=== PATIENT | female | born 1960 | race Caucasian/White ===

== ENCOUNTER 2016-05-23 15:10 | Emergency (ER) | payer BC ==
[2016-05-23 16:34] LABS: Hematocrit 40.3 % (37.0-47.0); Hemoglobin 13.8 gm/dL (12.5-16.0); Mean Cell Volume 90.6 fl (78-100); Mean Corpuscular Hgb Conc 34.2 g/dl (32-36); Mean Platelet Volume 10.4 fl (6.0-9.5); Neutrophil # 4.1 K/mm3 (1.3-6.0); Neutrophil % 69.8 % (42-75.0); Platelet Count 291 K/mm3 (150-450); Red Blood Count 4.45 M/mm3 (4.2-5.4); Red Cell Distribution Width 13.9 % (11.5-14.0); White Blood Count 5.9 K/mm3 (4.0-10.5)
--- OUTSIDE RECORDS SUMMARY | 2016-05-23 16:41 | XMS REPORT | Continuity of Care Document ---
:1960 Author Organization [facility] ([facility]) Address [address] [place] [address] Phone [phone] Care Team Providers Name Role Phone Ines Seth Primary Care Provider [phone] Source Comments This disclosure is being made pursuant to the Care Everywhere program, applicable federal and state laws, and may not contain all informaitonavailable regarding this patient.[facility] ([facility]) Active Allergies and Adverse Reactions Allergen Noted Date Severity Reactions Comments Codeine 11/27/2013 OTHER "goes limp" Sulfa (Sulfonamide Antibiotics) 11/27/2013 Pruritus,Angioedema Current Medications Prescription Sig. Disp. Refills Start Date End Date Status venlafaxine 75 mg Take 75 mg by mouth 2 Active tablet times daily. OTHER amphetamine salts Active clonazePAM 2 mg tablet Take 2 mg by mouth 2 Active times daily. levothyroxine 125 mcg Take 125 mcg by mouth Active tablet every morning before breakfast. ESTROGEN,ANITRA/ME-TESTO Take by mouth. Active STERONE (ESTROGENS-METHYLTESTOS TERONE PO) albuterol 90 Use 2 Puffs by Active mcg/Actuation inhaler inhalation every 6 hours as needed. Active Problems Not on file Social History Tobacco Use Types Packs/Day Years Used Date Never Assessed Last Filed Vital Signs Vital Sign Reading Time Taken Blood Pressure 140/81 11/27/2013 7:48 AM CDT Pulse 71 11/27/2013 7:48 AM CDT Temperature 36.3 C (97.3 F) 11/27/2013 7:48 AM CDT Respiratory Rate - - Height - - Weight - - Body Mass Index - - Oxygen Saturation - - Plan of Care Health Maintenance Due Date Last Done Comments HCV Screening 1960 Hepatitis B Vaccine (1 of 3 - Primary Series) 1960 Tdap Vaccine 11/04/1971 Lipid Disorder Screening 1978 MMR Vaccine 1978 Td Vaccine 1978 Cervical Cancer Screening 1990 Mammogram 2000 Colonoscopy 2010 Influenza Vaccine: Seasonal (#1) 11/01/2015 Results from Last 3 Months Not on file
[2016-05-23 16:52] LABS: Troponin I Less than 0.017 ng/ml (0.00-0.10)
[2016-05-23 16:59] LABS: ALT 32 U/L (19-67); AST 18 U/L (0-48); Albumin * 4.1 gm/dl (3.4-5.0); Alkaline Phosphatase * 80 U/L (50-170); Anion Gap 11.9 mmol/L (6.8-13.8); Bilirubin, Total 0.5 mg/dL (0.0-1.1); Blood Urea Nitrogen 15 mg/dL (3-23); Ca. Corrected For Albumin 8.3 mg/dL (8.4-10.2); Calcium * 8.7 mg/dL (7.9-10.9); Carbon Dioxide 29.8 mmol/L (24-32.6); Chloride 106 mmol/L (97-106); Glucose * 87 mg/dL (70-110); Potassium 3.7 mmol/L (3.4-4.6); Sodium 144 mmol/L (132-142); T4 Free * 1.41 ng/dL (0.76-1.46); TSH * 5.256 uIU/mL (0.358-3.74); Total Protein 7.6 gm/dL (6.2-8.2)
[2016-05-23 17:12] VITALS: BP 131/92
--- NOTE | 2016-05-23 17:38 | ERNOTE ---
Head Injury HPI - Narrative Date of Service: 05/23/16 - General Injury to: head Time Seen by Provider: 05/23/16 16:11 - Immun/Allergies/Home Medications Immunization: IMMUNIZATION HX Immunizations Up to Date Yes History of Influenza Vaccine No Hx Pneumococcal Vaccination No Allergies/Adverse Reactions: Allergies Allergy/AdvReac Type Severity Reaction Status Date / Time Sulfa (Sulfonamide Allergy Severe anaphaylaxi Verified 05/23/16 15:40 Antibiotics) s [Sulfa(Sulfonamide Antibiotics)] Amphetamine Aspar Allergy Mild Hives Verified 05/23/16 15:40 *RETIRED-11/04/12 [From Adderall XR] amphetamine sulfate Allergy Mild Hives Verified 05/23/16 15:40 [From Adderall XR] dextroamphetamine Allergy Mild Hives Verified 05/23/16 15:40 [From Adderall XR] acetaminophen [From NyQuil] AdvReac Mild rash Verified 05/23/16 15:40 aspirin [From Synalgos-DC] AdvReac Mild loss of Verified 05/23/16 15:40 muscle control caffeine [From Synalgos-DC] AdvReac Mild loss of Verified 05/23/16 15:40 muscle control codeine [Codeine] AdvReac Mild loss of Verified 05/23/16 15:40 muscle control dextromethorphan HBr AdvReac Mild rash Verified 05/23/16 15:40 [From NyQuil] dihydrocodeine AdvReac Mild loss of Verified 05/23/16 15:40 [From Synalgos-DC] muscle control dihydrocodeine bitartrate AdvReac Mild loss of Verified 05/23/16 15:40 [From Synalgos-DC] muscle control diphenhydramine HCl AdvReac Mild r/t asthma Verified 05/23/16 15:40 [From Benadryl] doxylamine [From NyQuil] AdvReac Mild rash Verified 05/23/16 15:40 pseudoephedrine HCl AdvReac Mild rash Verified 05/23/16 15:40 [From NyQuil] yeast, dried [Yeast] AdvReac Mild rash Verified 05/23/16 15:40 Home Medications: HOME MEDICATIONS Albuterol Sulfate [Proventil Hfa] 1 - 2 inh IH Q4H PRN 02/19/12 [Last Taken Unknown] Beta-Carotene(A) W-C & E/Min [Vision Vitamins] 1 each PO DAILY 02/19/12 [Last Taken Unknown] Clonazepam [Klonopin] 2 mg PO HS PRN 02/19/12 [Last Taken Unknown] Levothyroxine Sodium 125 mcg PO DAILY 02/19/12 [Last Taken Unknown] Trazodone HCl 50 mg PO HS 02/19/12 [Last Taken Unknown] Albuterol Sulfate [Albuterol Sulfate 2.5 MG/0.5ML] 1 vial IH TID #25 vial.neb [Last Taken Unknown] Dextroamphetamine/Amphetamine [Adderall 10 mg Tablet] 10 mg PO TID 12/16/15 [ Last Taken Unknown] Ibuprofen [Motrin] 800 mg PO TID PRN 12/16/15 [Last Taken Unknown] Pristiq ER 50 mg PO DAILY 12/16/15 [Last Taken Unknown] Cyclobenzaprine HCl [Flexeril] 10 mg PO TID PRN #30 tab 05/23/16 [Last Taken Unknown] - History of Present Illness Narrative: 55 y/o female to ED by private vehicle for a head injury that occurred last evening. She was in her kitchen, making herself something to eat, and woke up on the kitchen floor. She was alone and was unconscious for an unknown amount of time. She was having pain in her neck and shoulders when she woke up. She was also having bleeding from a scalp injury. She then had vomiting and diarrhea all throughout the night. She reports feeling fine today other than her neck being stiff. She came in for a muscle relaxant. Occurred: yesterday Location Occurred: home Head Injury Location: occipital Method of Injury: Reports: fell Reason for Fall: Reports: fainted Loss of Consciousness: Reports: brief (seconds) Associated Symptoms: Reports: neck pain. Denies: chest pain, cough, shortness of breath, fever/chills, headaches, weakness, syncope, seizure Review of Systems - Review of Systems Constitutional: Present: fatigue. Absent: fever, chills EYE: Absent: blurred vision, vision changes ENT: Absent: ear discharge, nasal drainage Respiratory: Absent: shortness of breath, cough Cardiology: Absent: chest pain, palpitations Gastrointestinal/Abdominal: Present: See HPI Genitourinary: Absent: frequency, dysuria, hematuria Musculoskeletal: Present: muscle pain, neck pain. Absent: back pain, joint pain Skin: Absent: lesions, lumps Neurological: Absent: headache, dizziness/light-headedness, weakness, numbness Endocrine: Present: no symptoms reported Hematologic/Lymphatic: Absent: easy bruising, easy bleeding Psych: Present: no symptoms reported - Patient's Past Medical History Patient History - Medical: ADHD, Anxiety, Hypothyroidism Patient History - Cardiac/Respiratory: No pertinent hx Patient History - Cancer: No Hx of Cancer Patient History - Surgical Procedures: Cholecystectomy Patient History - Other: None LMP (females 10-50): Menopausal - Social History Living Situations: home Abuse History: No History of abuse Psych History: Hx of Anxiety, Current tx/ever been on anti-depressants or anti- anxiety meds Smoking Status: Former smoker Alcohol Use: rarely Drug Use: none - Immunizations Immunizations Up to Date: Yes Hx Pneumococcal Vaccination: No History of Influenza Vaccine: No Physical Exam - Physical Exam General Appearance: Present: wd/wn, alert, no apparent distress Eye Exam: Normal inspection: bilateral, PERRL: bilateral, EOMI: bilateral Ears, Nose, Throat: Present: normal ENT inspection Neck: Present: supple, full range of motion, tender lateral. Absent: tender posterior midline Respiratory: Present: no respiratory distress, normal breath sounds, no accessory muscle use, lungs clear Cardiovascular/Chest: Present: regular rate, rhythm, no murmur, normal peripheral pulses Gastrointestinal/Abdominal: Present: normal bowel sounds, nontender, nondistended, soft Back Exam: Present: normal inspection, no vertebral tenderness Extremity Exam: Present: normal inspection, normal range of motion, no edema Neurological Exam: Present: alert, oriented, normal mood/affect, no motor/ sensory deficits Skin Exam: Present: normal color, warm/dry, other - small scalp laceration present, well approximated, no bleeding ED Progress - Results and Orders Patient's Lab Results:: I have reviewed the patient's lab results. - Vital Signs Patient's Vital Signs:: I have reviewed the patient's vital signs. Vital Signs: Vital Signs 05/23/16 05/23/16 15:32 17:10 Temperature 36.4 C L Pulse Rate 112 H 95 Respiratory 16 12 Rate Blood Pressure 142/113 131/92 O2 Sat by Pulse 96 98 Oximetry - EKG EKG: NSR EKG read: Reviewed by me - CT/Ultrasound CT/Ultrasound Narrative: No acute intracranial process identified on non-contrast head CT - Progress/Reassessment Chief Complaint: Head Injury Progress:: Unchanged Departure Clinical Impression: Episode of syncope Qualifiers: Syncope type: unspecified Qualified Code(s): R55 - Syncope and collapse Head injury Qualifiers: Encounter type: initial encounter Qualified Code(s): S09.90XA - Unspecified injury of head, initial encounter Scalp laceration Qualifiers: Encounter type: initial encounter Qualified Code(s): S01.01XA - Laceration without foreign body of scalp, initial encounter - Departure Disposition: Home Follow Up Needed Condition: Good Instructions: Head Injury, Adult, [id number] Additional Instructions: Continue your routine medications Return for worsening symptoms Follow up with your doctor in the next few days Referrals: Ines Seth MD [Primary Care Provider] - Prescriptions: Cyclobenzaprine HCl [Flexeril] 10 mg PO TID PRN #30 tab PRN Reason: MUSCLE SPASMS
[2016-05-23] MEDS ORDERED: KETOROLAC TROMETHAMINE 60 MG/2 ML VIAL IM ONE ×2 (17:40→17:42)
== END 2016-05-23 17:46 | disposition home or self-care (01) ==
LOC: ER 15:10
DX: S09.90XA Unspecified injury of head, initial encounter (principal); S01.01XA Laceration without foreign body of scalp, initial encounter; R55 Syncope and collapse; Z87.891 Personal history of nicotine dependence

== ENCOUNTER 2020-08-24 11:03 | Inpatient (IN) ==
[2020-08-24] MEDS ORDERED: HYDROmorphone HCL 1 MG/ML DISP.SYRIN IV ONE ×2 (11:27→13:21)
[2020-08-24] MEDS ORDERED: NORMAL SALINE 1,000 ML IV ONE (11:27)
[2020-08-24] MEDS ORDERED: ONDANSETRON HCL/PF 2 MG/ML VIAL IV ONE (11:27)
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
[2020-08-24 11:35] LABS: Hematocrit 42.8 % (37.0-47.0); Hemoglobin 14.3 gm/dL (12.5-16.0); Mean Cell Volume 96.2 fl (78-100); Mean Corpuscular Hemoglobin 32.1 pg (27-31); Mean Corpuscular Hgb Conc 33.4 g/dl (32-36); Neutrophil # 10.7 K/mm3 (1.3-6.0); Neutrophil % 88.1 % (42-75.0); Platelet Count 244 K/mm3 (150-450); Red Blood Count 4.45 M/mm3 (4.2-5.4); Red Cell Distribution Width 13.6 % (11.5-14.0); White Blood Count 12.2 K/mm3 (4.0-10.5)
[2020-08-24 11:46] LABS: Prothrombin Time (Patient) 11.1 Seconds (9.1-10.7)
[2020-08-24 11:47] LABS: INR 1.07 INR (0.92-1.08)
[2020-08-24 11:49] LABS: Albumin * 3.9 gm/dl (3.4-5.0); Anion Gap 12.7 mmol/L (6.8-13.8); Bilirubin, Total 0.6 mg/dL (0.0-1.1); CRP 1.4 mg/dL (0.0-0.9); Ca. Corrected For Albumin 7.9 mg/dL (8.4-10.2); Calcium * 8.1 mg/dL (7.9-10.9); Carbon Dioxide 28.4 mmol/L (24-32.6); Potassium 3.1 mmol/L (3.4-4.6); Total Protein 7.4 gm/dL (6.2-8.2)
[2020-08-24 12:01] LABS: Urine Bilirubin Negative (NEGATIVE); Urine Blood Negative /ul (NEGATIVE); Urine Ketone Negative (NEGATIVE); Urine Nitrite Negative (NEGATIVE); Urine Protein Negative (NEGATIVE); Urine Specific Gravity 1.025 SP.GR. (1.005-1.010); Urine Urobilinogen Normal (NORMAL)
[2020-08-24 12:12] LABS: Urine Appearance Clear (CLEAR); Urine Bacteria TRACE; Urine Color Yellow; Urine RBC TRACE /hpf (0-5); Urine WBC 0-5 /hpf (0-5)
[2020-08-24 12:13] LABS: Urine Mucus TRACE
[2020-08-24] MEDS ORDERED: DIATRIZOATE MEGLUMINE, SODIUM 30 ML BTL PO ONE (12:24)
[2020-08-24] MEDS: CIPROFLOXACIN IN 5 % DEXTROSE 400 MG/200 ML BAG IV SCH (15:45)
[2020-08-24] MEDS: metroNIDAZOLE/SODIUM CHLORIDE 500 MG/100 ML BAG IV SCH (15:49)
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
[2020-08-24] MEDS ORDERED: ALBUTEROL SULFATE 2.5 MG/3 ML VIAL.NEB IH PRN ×2 (16:45)
[2020-08-24] MEDS: POTASSIUM CHLORIDE IN WATER 100 ML IV SCH ×4 (17:34→23:18)
[2020-08-24] MEDS: GLYCERIN/PROPYLENE GLYCOL 150 DROP BTL OP SCH (17:37)
[2020-08-24] MEDS: MONTELUKAST SODIUM 10 MG TABLET PO SCH (17:41)
[2020-08-24] MEDS: ACETAMINOPHEN 500 MG TABLET PO PRN (18:22)
[2020-08-24] MEDS: traZODone HCL 150 MG TABLET PO SCH (20:36)
[2020-08-24] MEDS: clonazePAM 1 MG TABLET PO PRN (20:41)
[2020-08-25] MEDS: metroNIDAZOLE/SODIUM CHLORIDE 500 MG/100 ML BAG IV SCH ×4 (01:20→22:59)
[2020-08-25] MEDS: CIPROFLOXACIN IN 5 % DEXTROSE 400 MG/200 ML BAG IV SCH ×2 (02:29→14:58)
[2020-08-25] MEDS: ACETAMINOPHEN 500 MG TABLET PO PRN ×3 (02:33→21:07)
[2020-08-25] MEDS: LEVOTHYROXINE SODIUM 88 MCG TABLET PO SCH (06:35)
[2020-08-25 06:37] LABS: Hematocrit 38.5 % (37.0-47.0); Hemoglobin 12.4 gm/dL (12.5-16.0); Mean Cell Volume 98.5 fl (78-100); Mean Corpuscular Hemoglobin 31.7 pg (27-31); Mean Corpuscular Hgb Conc 32.2 g/dl (32-36); Mean Platelet Volume 10.4 fl (8-12.5); Neutrophil # 9.6 K/mm3 (1.3-6.0); Neutrophil % 83.8 % (42-75.0); Platelet Count 181 K/mm3 (150-450); Red Blood Count 3.91 M/mm3 (4.2-5.4); Red Cell Distribution Width 13.9 % (11.5-14.0); White Blood Count 11.5 K/mm3 (4.0-10.5)
[2020-08-25 07:09] LABS: Albumin * 2.9 gm/dl (3.4-5.0); Anion Gap 9.2 mmol/L (6.8-13.8); BUN/Creatinine Ratio 9.2 (9.0-21.6); Bilirubin, Total 0.6 mg/dL (0.0-1.1); Ca. Corrected For Albumin 7.7 mg/dL (8.4-10.2); Calcium * 7.1 mg/dL (7.9-10.9); Carbon Dioxide 30.7 mmol/L (24-32.6); Potassium 2.9 mmol/L (3.4-4.6); Total Protein 5.9 gm/dL (6.2-8.2)
[2020-08-25] MEDS: GLYCERIN/PROPYLENE GLYCOL 150 DROP BTL OP SCH ×3 (08:44→17:07)
[2020-08-25] MEDS: POTASSIUM CHLORIDE 20 MEQ TABLET.SA PO SCH ×2 (09:54→20:57)
--- NOTE | 2020-08-25 10:03 | PN ---
Subjective - Date and Time Seen Date: 08/25/20 Time: 09:10 Subjective Narrative: She continues to home lower abdominal pain/cramping rated 4 out of 10. She states the cramping is slightly better today. She continues to also have some bright red blood per rectum. Objective - Review of Systems Generalized/Overall Review: Denies: Fever Respiratory: Denies: Shortness of Breath Cardiac: Denies: Chest Pain Abdominal: Reports: Abdominal Pain - Lower, Bright blood from rectum. Denies: Vomiting Misc: All systems neg except as marked - Vitals Vitals: Last Vital Signs Temp 37.2 C 08/25/20 06:00 Pulse 78 08/25/20 06:00 Resp 16 08/25/20 06:00 BP 110/47 08/25/20 06:00 Pulse Ox 93 08/25/20 06:00 - Abnormal Lab Findings Abnormal Lab Findings: Abnormal Lab Results 08/24/20 08/24/20 08/24/20 Range/Units 11:25 11:25 11:25 WBC 12.2 H (4.0-10.5) K/mm3 RBC (4.2-5.4) M/mm3 Hgb (12.5-16.0) gm/dL MCH 32.1 H (27-31) pg Immature Gran # (Auto) 0.04 H (0.000-0.0310) K/mm3 Neutrophils % 88.1 H (42-75.0) % Lymphocytes % 4.9 L (20-51) % Neutrophils # 10.7 H (1.3-6.0) K/mm3 Lymphocytes # 0.60 L (1.5-3.5) k/mm3 PT 11.1 H (9.1-10.7) Seconds Potassium 3.1 L (3.4-4.6) mmol/L BUN/Creatinine Ratio 24.0 H (9.0-21.6) Random Glucose 120 H (70-110) mg/dL Calcium (7.9-10.9) mg/dL Calcium Adj for Albumin 7.9 L (8.4-10.2) mg/dL C-Reactive Prot, Quant 1.4 H (0.0-0.9) mg/dL Total Protein (6.2-8.2) gm/dL Albumin (3.4-5.0) gm/dl Lipase 31 L (73-393) U/L 08/25/20 08/25/20 Range/Units 06:29 06:29 WBC 11.5 H (4.0-10.5) K/mm3 RBC 3.91 L (4.2-5.4) M/mm3 Hgb 12.4 L (12.5-16.0) gm/dL MCH 31.7 H (27-31) pg Immature Gran # (Auto) 0.04 H (0.000-0.0310) K/mm3 Neutrophils % 83.8 H (42-75.0) % Lymphocytes % 8.7 L (20-51) % Neutrophils # 9.6 H (1.3-6.0) K/mm3 Lymphocytes # 1.00 L (1.5-3.5) k/mm3 PT (9.1-10.7) Seconds Potassium 2.9 L (3.4-4.6) mmol/L BUN/Creatinine Ratio (9.0-21.6) Random Glucose (70-110) mg/dL Calcium 7.1 L (7.9-10.9) mg/dL Calcium Adj for Albumin 7.7 L (8.4-10.2) mg/dL C-Reactive Prot, Quant (0.0-0.9) mg/dL Total Protein 5.9 L (6.2-8.2) gm/dL Albumin 2.9 L (3.4-5.0) gm/dl Lipase (73-393) U/L - Exam Constitutional: Present: Alert, Cooperative, Well developed, Well nourished, No distress, Middle aged ENT Exam: Present: hearing grossly normal Neck: Present: non-tender, supple. Absent: lymphadenopathy (R), lymphadenopathy (L) Respiratory: Present: lungs clear, no respiratory distress, no accessory muscle use, No wheezing. Absent: crackles, rhonchi Cardiovascular/Chest: Present: regular rate, rhythm, no edema, no murmur Abdomen: Present: Normal bowel sounds, soft, no rebound tenderness, tender - Left lower quadrant and right lower quadrant Extremity: Present: no pedal edema Skin Exam: Present: normal color, warm/dry Appearance: Present: appropriate appearance, appropriate insight Eye contact: Present: cooperative Thoughts: Present: normal thought pattern, normal mood /affect Assessment/Plan Plan Narrative: 59-year-old female with a past medical history of chronic recurrent diarrhea with abdominal discomfort, asthma, ADHD, anxiety, bipolar affective disorder, borderline personality disorder, depression, hypothyroidism, seasonal affective disorder presents from home with complaints of abdominal pain for the past 2 days. Her symptoms are associated with diarrhea with bright red blood per rectum. She states she has had recurrent episodes of diarrhea and abdominal pain in the past with no blood in the stool. She presented to the ER and is found to have stable vitals, H&H is stable at 14.3/42.8, she has a mild leukocytosis of 12.2, potassium is 3.1. CT abdomen pelvis is positive for nonspecific colitis involving the left hemicolon, no acute intra-abdominal or pelvic pathology, benign appearing incidental hepatic, splenic and renal cyst, no follow-up is recommended. She is being admitted for observation for colitis. She will receive Cipro and Flagyl in the emergency room. Her potassium has dropped from 3.1-2.9. White count has come down from 12.2- 11.5. H&H has gone from 14.3/42.8-12.4/38.5. She continues to have abdominal pain in her left lower quadrant and right lower quadrant. She remained n.p.o. overnight but had some clears this morning. I have discontinued the clear liquids and transition her back to n.p.o. status. Surgery has been consulted and Dr. Zamora states he will try to scope her later today. Patient is colonoscopy today and per Dr. Zamora the etiology of her diarrhea/bright red blood per rectum is unclear and could be either inflammatory versus infectious. He recommends ordering stool studies. I will ordered stool culture, C. difficile and fecal calprotectin. Plan #1 monitor CBC and vitals #2 continue Cipro and Flagyl day 2 #3 replete potassium as needed #4 n.p.o. #5 awaiting surgical consult - Problems/Diagnosis (1) Colitis Problem: Acute (2) Lower gastrointestinal bleeding Problem: Acute (3) Hypokalemia due to excessive gastrointestinal loss of potassium Problem: Acute (4) Major depression Problem: Chronic Qualifiers: (5) Generalized anxiety disorder Problem: Chronic (6) Borderline personality disorder Problem: Chronic (7) Attention deficit disorder of adult with hyperactivity Problem: Chronic (8) Asthma Problem: Acute
--- NOTE | 2020-08-25 10:30 | CONS ---
[facility] - General Date of Service: 08/25/20 Source: patient, RN/MD, RN notes reviewed, old records Exam Limitations: no limitations - History of Present Illness Timing/Duration: other Modifying Factors - (Worsens): Reports: movement Modifying Factors - (Improves): Reports: immobilization Associated Symptoms: other - Abdominal bloating, urgent bowel movements with blood Allergies/Adverse Reactions: Allergies Sulfa (Sulfonamide Antibiotics) [Sulfa(Sulfonamide Antibiotics)] Allergy (Severe, Verified 08/24/20 11:12) anaphaylaxis Amphetamine Aspar *RETIRED-11/04/12 [From Adderall XR] Allergy (Mild, Verified 08/24/20 11:12) Hives amphetamine sulfate [From Adderall XR] Allergy (Mild, Verified 08/24/20 11:12) Hives dextroamphetamine [From Adderall XR] Allergy (Mild, Verified 08/24/20 11:12) Hives animal dander Allergy (Verified 08/24/20 11:12) Throat Swells lamotrigine Allergy (Verified 08/24/20 11:12) Stomach Cramps Vomiting Muscle Aches mold Allergy (Verified 08/24/20 11:12) Resp Issues mushroom Allergy (Verified 08/24/20 11:12) Asthma tree and shrub pollen Allergy (Verified 08/24/20 11:12) Asthma acetaminophen [From NyQuil] Adverse Reaction (Mild, Verified 08/24/20 11:12) rash aspirin [From Synalgos-DC] Adverse Reaction (Mild, Verified 08/24/20 11:12) loss of muscle control caffeine [From Synalgos-DC] Adverse Reaction (Mild, Verified 08/24/20 11:12) loss of muscle control codeine [Codeine] Adverse Reaction (Mild, Verified 08/24/20 11:12) loss of muscle control dextromethorphan HBr [From NyQuil] Adverse Reaction (Mild, Verified 08/24/20 11:12) rash dihydrocodeine [From Synalgos-DC] Adverse Reaction (Mild, Verified 08/24/20 11:12) loss of muscle control dihydrocodeine bitartrate [From Synalgos-DC] Adverse Reaction (Mild, Verified 08/24/20 11:12) loss of muscle control diphenhydramine HCl [From Benadryl] Adverse Reaction (Mild, Verified 08/24/20 11:12) r/t asthma doxylamine [From NyQuil] Adverse Reaction (Mild, Verified 08/24/20 11:12) rash pseudoephedrine HCl [From NyQuil] Adverse Reaction (Mild, Verified 08/24/20 11:12) rash yeast, dried [Yeast] Adverse Reaction (Mild, Verified 08/24/20 11:12) rash Home Medications: Home Medications Medication Instructions Recorded Last Taken Ibuprofen [Motrin] 800 mg PO TID PRN 12/16/15 Unknown acetaminophen 500 mg tablet 1,000 mg PO Q6H PRN tab 09/03/18 Unknown propylene glycol 0.6 % eye drops 1 drp OP TID 10/23/19 08/24/20 montelukast 10 mg tablet 10 mg PO DAILY #30 tab 02/09/20 08/24/20 albuterol sulfate 90 mcg/actuation 2 inh IH Q4H PRN #8 g 02/10/20 Unknown aerosol inhaler albuterol sulfate 2.5 mg INHALATION QID PRN #75 ml 03/02/20 Unknown levothyroxine 88 mcg tablet 88 mcg PO DAILY #90 tab 03/15/20 08/21/20 clonazepam 2 mg tablet 2 mg PO TID PRN #270 tab 03/18/20 08/23/20 21:00 trazodone 150 mg tablet 150 mg PO HS #90 tab 04/09/20 08/23/20 21:00 desvenlafaxine succinate 100 mg 100 mg PO DAILY #90 tab 06/08/20 08/23/20 08:00 tablet,extended release 24 hr dextroamphetamine-amphetamine 30 30 mg PO DAILY #90 tab 06/08/20 08/23/20 08:00 mg tablet Procedures Colonoscopy (02/20/12) INJECT/INFUSE NEC (03/27/09) Laparoscopic cholecystectomy (07/18/02) Medications - Medications Current Medications: Current Medications Acetaminophen (Acetaminophen 500 Mg Tablet) 500 mg PO Q4H PRN PRN Reason: Mild pain (pain scale 1-3) Stop: 09/23/20 16:43 Last Admin: 08/25/20 08:45 Dose: 500 mg Documented by: Clonazepam (Clonazepam 1 Mg Tablet) 2 mg PO TID PRN PRN Reason: anxiety Last Admin: 08/24/20 20:41 Dose: 2 mg Documented by: Ciprofloxacin/Dextrose (Cipro) 400 mg in 200 mls @ 200 mls/hr IV Q12H [facility]; Protocol Stop: 09/23/20 15:16 Last Infusion: 08/25/20 03:29 Dose: Infused Documented by: Metronidazole (Flagyl) 500 mg in 100 mls @ 100 mls/hr IV Q8H [facility]; Protocol Stop: 09/23/20 15:16 Last Infusion: 08/25/20 07:35 Dose: Infused Documented by: Levothyroxine Sodium (Levothyroxine Sodium 88 Mcg Tablet) 88 mcg PO DAILY@0700 [facility] Stop: 09/24/20 07:01 Last Admin: 08/25/20 06:35 Dose: 88 mcg Documented by: Methylcellulose (Glycerin/Propylene Glycol 150 Drop Btl) 1 drop OP TID [facility] Stop: 09/23/20 17:01 Last Admin: 08/25/20 08:44 Dose: 1 drop Documented by: Montelukast Sodium (Montelukast Sodium 10 Mg Tablet) 10 mg PO DAILY@1800 [facility] Stop: 09/23/20 18:01 Last Admin: 08/24/20 17:41 Dose: 10 mg Documented by: (Desvenlafaxine Succinate [ Desvenlafaxine Succinate Er] 100 Mg T 100 mg PO DAILY [facility] Stop: 09/24/20 09:01 Last Admin: 08/25/20 08:44 Dose: 100 mg Documented by: (Dextroamphetamine- Amphetamine 30 Mg Tablet) 30 mg PO DAILY [facility] Stop: 09/24/20 09:01 Last Admin: 08/25/20 08:43 Dose: Not Given Documented by: Potassium Chloride (Potassium Chloride 20 Meq Tablet.Sa) 40 meq PO BIDWM [facility] Stop: 09/24/20 09:06 Last Admin: 08/25/20 09:54 Dose: 40 meq Documented by: Trazodone HCl (Trazodone Hcl 150 Mg Tablet) 150 mg PO HS [facility] Stop: 09/23/20 21:01 Last Admin: 08/24/20 20:36 Dose: 150 mg Documented by: Review of Systems - Review of Systems Narrative: She has had "bowel issues" for many years. He has spells about once a week or then not for several weeks. Her abdomen will bloat. She will have vomiting and severe lower abdominal pain that gets better after she moves her bowels. She will be fine moving her bowels daily for a while and then the cycle repeats. The other day however the pain was very severe and she started having bloody bowel movements. In the emergency room she was found to have an elevated white blood cell count and CT scan showed nonspecific pericolonic inflammatory changes on the left side. She required parenteral medication for pain control. Today she is more comfortable but still is having some blood in her bowel movements. Her son has Crohn's disease and celiac disease. Her mother may be had colon cancer. Her sister had a colon polyp. Her sister has Monsivais's. The patient had a normal colonoscopy in 2011 and 2018. She was also having similar symptoms in 2019 and an EGD was done then as well. Generalized/Overall Review: Absent: Chills, Fever EENTM: Present: No Symptoms Reported Respiratory: Present: No Symptoms Reported. Absent: Cough, Shortness of Breath Cardiac: Absent: Chest Pain, Palpitations Abdominal: Present: Other - Her abdomen hurts less today but there is still blood with her bowel movements Genitourinary: Present: No Symptoms Reported Musculoskeletal: Present: No Symptoms Reported Neurological: Present: No Symptoms Reported Skin: Present: No Symptoms Reported Physical Examination - Exam Vital Signs: Vital Signs - Last Taken Temp 37.4 C 08/25/20 10:10 Pulse 91 08/25/20 10:10 Resp 16 08/25/20 10:10 BP 137/66 08/25/20 10:10 Pulse Ox 93 08/25/20 10:10 O2 Oxygen Delivery Method Room Air Constitutional: Present: Alert, Oriented x3, Cooperative, Well nourished, No distress, Obese ENT Exam: Present: normal ENT inspection Eye Exam: bilateral eye: normal inspection Neck: Present: normal inspection Respiratory: Present: no respiratory distress Cardiovascular/Chest: Present: regular rate, rhythm Abdomen: Present: other - Her abdomen is obese. There is some tympany to percussion but no percussion tenderness. Very few bowel sounds. No discrete point tenderness or rebound elicited Extremity: Present: normal range of motion, no pedal edema Skin Exam: Present: normal color, warm/dry Neurologic: Present: nurse researcher II-XII nml as tested, no motor/sensory deficits Appearance: Present: appropriate appearance, appropriate insight Eye contact: Present: cooperative, good eye contact, normal speech Thoughts: Present: normal thought pattern - Results and Findings: Lab/Microbiology results last 24 hrs: Abnormal/Pending Laboratory Last 24 HRS 08/25/20 08/25/20 08/24/20 06:29 06:29 11:25 WBC 11.5 H RBC 3.91 L Hgb 12.4 L MCH 31.7 H Immature Gran # (Auto) 0.04 H Neutrophils % 83.8 H Lymphocytes % 8.7 L Neutrophils # 9.6 H Lymphocytes # 1.00 L PT Potassium 2.9 L 3.1 L BUN/Creatinine Ratio 24.0 H Random Glucose 120 H Calcium 7.1 L Calcium Adj for Albumin 7.7 L 7.9 L C-Reactive Prot, Quant 1.4 H Total Protein 5.9 L Albumin 2.9 L Lipase 31 L 08/24/20 08/24/20 11:25 11:25 WBC 12.2 H RBC Hgb MCH 32.1 H Immature Gran # (Auto) 0.04 H Neutrophils % 88.1 H Lymphocytes % 4.9 L Neutrophils # 10.7 H Lymphocytes # 0.60 L PT 11.1 H Potassium BUN/Creatinine Ratio Random Glucose Calcium Calcium Adj for Albumin C-Reactive Prot, Quant Total Protein Albumin Lipase CT scan shows nonspecific pericolonic inflammation around the left colon - Assessments/Findings (1) Colitis Diagnosis(s): Her episodic abdominal pain could be due to a functional bowel disorder. The cecum does appear mobile on the CT scan. The pericolonic inflammation on the left however is new. This may be due to infectious colitis or potentially ischemia. She had some clear liquids this morning, however if she is kept at n.p.o. status we could do an unprepped colonoscopy later today with biopsies. She is familiar with colonoscopy from her previous visit. After an interactive discussion her questions were answered to her apparent satisfaction and she has given informed consent for colonoscopy with biopsy. Discussed with Dr. Metcalf Problem: Acute
[2020-08-25] MEDS: POTASSIUM CHLORIDE IN WATER 100 ML IV SCH ×4 (10:46→13:44)
[2020-08-25] MEDS: NORMAL SALINE 1,000 ML IV PRN ×2 (11:51→17:34)
--- NOTE | 2020-08-25 15:26 | ANES ---
Anesthesia Pre Procedure Eval Vitals/Labs: Last Vital Signs Temp 37.1 C 08/25/20 14:30 Pulse 79 08/25/20 14:30 Resp 12 08/25/20 14:30 BP 128/57 08/25/20 14:30 Pulse Ox 92 L 08/25/20 14:30 HOME MEDICATIONS Ibuprofen [Motrin] 800 mg PO TID PRN 12/16/15 [Last Taken Unknown] acetaminophen 500 mg tablet 1,000 mg PO Q6H PRN tab 09/03/18 [Last Taken Unknown] propylene glycol 0.6 % eye drops 1 drp OP TID 10/23/19 [Last Taken 08/24/20] montelukast 10 mg tablet 10 mg PO DAILY #30 tab 02/09/20 [Last Taken 08/24/20] albuterol sulfate 90 mcg/actuation aerosol inhaler 2 inh IH Q4H PRN #8 g 02/10/20 [Last Taken Unknown] albuterol sulfate 2.5 mg INHALATION QID PRN #75 ml 03/02/20 [Last Taken Unknown] levothyroxine 88 mcg tablet 88 mcg PO DAILY #90 tab 03/15/20 [Last Taken 08/21/20] clonazepam 2 mg tablet 2 mg PO TID PRN #270 tab 03/18/20 [Last Taken 08/23/20 21:00] trazodone 150 mg tablet 150 mg PO HS #90 tab 04/09/20 [Last Taken 08/23/20 21:00] desvenlafaxine succinate 100 mg tablet,extended release 24 hr 100 mg PO DAILY #90 tab 06/08/20 [Last Taken 08/23/20 08:00] dextroamphetamine-amphetamine 30 mg tablet 30 mg PO DAILY #90 tab 06/08/20 [Last Taken 08/23/20 08:00] Allergies/Adverse Reactions: Allergies Allergy/AdvReac Type Severity Reaction Status Date / Time Sulfa (Sulfonamide Allergy Severe anaphaylaxi Verified 08/24/20 11:12 Antibiotics) s [Sulfa(Sulfonamide Antibiotics)] Amphetamine Aspar Allergy Mild Hives Verified 08/24/20 11:12 *RETIRED-11/04/12 [From Adderall XR] amphetamine sulfate Allergy Mild Hives Verified 08/24/20 11:12 [From Adderall XR] dextroamphetamine Allergy Mild Hives Verified 08/24/20 11:12 [From Adderall XR] animal dander Allergy Throat Verified 08/24/20 11:12 Swells lamotrigine Allergy Stomach Verified 08/24/20 11:12 Cramps Vomiting Muscle Aches mold Allergy Resp Issues Verified 08/24/20 11:12 mushroom Allergy Asthma Verified 08/24/20 11:12 tree and shrub pollen Allergy Asthma Verified 08/24/20 11:12 acetaminophen [From NyQuil] AdvReac Mild rash Verified 08/24/20 11:12 aspirin [From Synalgos-DC] AdvReac Mild loss of Verified 08/24/20 11:12 muscle control caffeine [From Synalgos-DC] AdvReac Mild loss of Verified 08/24/20 11:12 muscle control codeine [Codeine] AdvReac Mild loss of Verified 08/24/20 11:12 muscle control dextromethorphan HBr AdvReac Mild rash Verified 08/24/20 11:12 [From NyQuil] dihydrocodeine AdvReac Mild loss of Verified 08/24/20 11:12 [From Synalgos-DC] muscle control dihydrocodeine bitartrate AdvReac Mild loss of Verified 08/24/20 11:12 [From Synalgos-DC] muscle control diphenhydramine HCl AdvReac Mild r/t asthma Verified 08/24/20 11:12 [From Benadryl] doxylamine [From NyQuil] AdvReac Mild rash Verified 08/24/20 11:12 pseudoephedrine HCl AdvReac Mild rash Verified 08/24/20 11:12 [From NyQuil] yeast, dried [Yeast] AdvReac Mild rash Verified 08/24/20 11:12 - Planned Procedure Planned Procedure: Colitis lower GI bleeding Medication List Reviewed:: Yes Allergies Verified: Yes Medical History (Last Reviewed 08/25/20 @ 15:16 by Vasu Collins CRNA) COVID-19 vaccine series completed (Acute) Has received influenza vaccination in current influenza season (Acute) Onset Date: 06/25/18 Major depression (Chronic) Generalized anxiety disorder (Chronic) Borderline personality disorder (Chronic) Attention deficit disorder of adult with hyperactivity (Chronic) Rib contusion (Acute) Asthma with acute exacerbation in adult (Acute) Acute bronchitis (Acute) Episode of syncope (Acute) Head injury (Acute) Scalp laceration (Acute) ADHD (attention deficit hyperactivity disorder) Allergic rhinitis Anxiety Bipolar affective disorder, current episode depressed Borderline personality disorder Depression Hypothyroidism Insomnia due to other mental disorder Panic disorder Seasonal affective disorder Cholelithiasis Ovarian cyst Surgical History (Last Reviewed 08/25/20 @ 15:17 by Vasu Collins CRNA) History of cholecystectomy Onset Date: 07/18/02 [place]-lap History of colonoscopy Onset Date: 10/16/18 02/20/12 [place]-normal. 10/16/18 [place]-normal. Recheck 10 yrs. [place] teeth extracted Onset Date: Unknown Family History (Last Reviewed 08/25/20 @ 15:17 by Vasu Collins CRNA) Brother Alive and well 2 brothers Daughter Ulcerative colitis Grandmother History of colostomy maternal-colon ca (dx age 47) Mother Hypothyroidism Alzheimers disease Hyperlipemia Sister Cancer breast ca (triple-3 cancers of breast) Sister Colon polyps Monsivais's esophagus Father CVA (cerebral vascular accident) Diabetes Renal failure on dialysis Myocardial infarction Grandfather Heart disease Sister Colitis Son Crohn's disease Celiac disease - Family Anesthesia History Family History:: no untoward family reactions to anesthesia, no familial bleeding tendencies, no family history of clotting disorders, no family history of premature - Airway/Neck/Teeth Within Normal Limits:: Yes Teeth Condition: missing Denture Type: Partial upper Mallampatti Score: 2 Thyromental (T-M) distance: > 6 cm Mandibulo Hyoid distance: > 3 cm - Respiratory Respiratory History: COPD Respiratory Physical: lungs clear Smoking Status: Former smoker Discussed smoking cessation including day of surgery: No Sleep Apnea currently treated: No Sleep Apnea by current assessment: No Discussed Risks/Treatment of EDWARD: No - Cardiovascular Tolerate Activity: Fair Heart Sounds: S1 & S2, Regular - Gastrointestinal NPO since: 953 Comments:: nauseated - Anesthesia Assessment and Plan ASA Class: PS, II, E Anesthesia Type Plan: General ET
[2020-08-25] MEDS ORDERED: PROPOFOL VIAL IV ONE (15:31)
[2020-08-25] MEDS ORDERED: ROCURONIUM BROMIDE 10 MG/ML VIAL ONE (15:31)
[2020-08-25] MEDS ORDERED: NEOSTIGMINE METHYLSULFATE 1 MG/ML VIAL ONE (15:31)
[2020-08-25] MEDS ORDERED: GLYCOPYRROLATE 0.2 MG/ML VIAL ONE (15:31)
[2020-08-25] MEDS ORDERED: ONDANSETRON HCL/PF 2 MG/ML VIAL ONE (15:31)
[2020-08-25] MEDS ORDERED: LIDOCAINE HCL 20 ML VIAL ONE (15:31)
[2020-08-25] MEDS ORDERED: SUCCINYLCHOLINE CHLORIDE 20 MG/ML VIAL ONE (15:32)
--- NOTE | 2020-08-25 16:40 | ANES ---
Post Anesthesia Discharge - Transfer of Care Transfer of Care handoff given to nurse: Yes - Discharge from PACU Discharge from PACU when meets criteria: Yes - Discharge to ASU Discharge to ASU-no complications/pt stable: Yes
--- NOTE | 2020-08-25 16:41 | ANES ---
Post Anesthesia Assessment - Vital Signs Vitals: Last Vital Signs Temp 37.1 C 08/25/20 14:30 Pulse 79 08/25/20 14:30 Resp 12 08/25/20 14:30 BP 128/57 08/25/20 14:30 Pulse Ox 92 L 08/25/20 14:30 Airway Patency: Normal - Mental Status Level Of Consciousness: Awake - Pain Level Pain Score: 0 - N/V Assessment Nausea/Vomiting Presence: None Dehydration:: No
--- NOTE | 2020-08-25 16:58 | OR ---
Operative Report - Dictated Report Narrative: OPERATIVE REPORT DATE OF OPERATION: 08/25/2020 PREOPERATIVE DIAGNOSIS: Colitis POSTOPERATIVE DIAGNOSIS: Colitis above 35 cm (pathology pending) OPERATION: Colonoscopy to 65 cm with biopsy SURGEON: Mana Zamora MD ANESTHESIA: General endotracheal/RSI Vasu Collins CRNA INDICATIONS FOR PROCEDURE: The patient is a 59-year-old female with a long history of abdominal pain and irregular bowel movements. 2 days prior to admission she started having severe lower abdominal pain with vomiting. She started passing blood. CT scan shows inflammatory change adjacent to the descending colon adjusting colitis. There is a family history of inflammatory bowel disease. The patient had a normal colonoscopy in 2019 FINDINGS: Normal-appearing rectum. Abrupt transition at 35 cm with contiguous proximal colitis (pathology pending)--- the photographs NARRATIVE OF PROCEDURE: The patient was identified in the holding area, and prior to the administration of anesthetic, a multidisciplinary timeout was observed. With the patient supine, SCDs were applied, rapid sequence intubation performed and general endotracheal anesthetic administered. Patient was then placed in the left lateral position with appropriate padding and monitoring. The perineum was inspected. There was a deep presacral dimple, however there was no evidence of inflammation or skin breakdown. The external appearance of the anus was normal. Sphincter tone was good. The flexible fiberoptic colonoscope was inserted into the rectum which was insufflated with air. The rectal mucosa and submucosal vascular pattern appeared normal. The scope was advanced using saline only insufflation through the sigmoid colon, which appeared normal up to approximately 35 cm. At this point there was an abrupt transition from circumferential edema to circumferential inflammation. Photographs were taken. The inflammation was seen to extend contiguously up the descending colon to well proximal to 65 cm. The scope was then slowly withdrawn in a circular fashion so that all aspects of colonic mucosa were inspected. Multiple biopsies of inflamed mucosa were obtained and submitted to pathology. The biopsy sites were seen to be hemostatic. No diverticular openings were demonstrated. No polyps were encountered. The scope was gradually withdrawn to the level of the rectum. As much gas as possible was removed. The scope was withdrawn from the patient and the procedure terminated. The patient tolerated the anesthetic and procedure well without complication and was transferred to the recovery room awake, extubated, and in stable condition. Reviewed and electronically signed
[2020-08-25] MEDS: MONTELUKAST SODIUM 10 MG TABLET PO SCH (20:57)
[2020-08-25] MEDS: traZODone HCL 150 MG TABLET PO SCH (20:58)
[2020-08-25] MEDS: clonazePAM 1 MG TABLET PO PRN (21:08)
[2020-08-26] MEDS: CIPROFLOXACIN IN 5 % DEXTROSE 400 MG/200 ML BAG IV SCH ×2 (02:49→14:46)
[2020-08-26] MEDS: ACETAMINOPHEN 500 MG TABLET PO PRN ×2 (03:01→09:13)
[2020-08-26 06:29] LABS: Hematocrit 34.4 % (37.0-47.0); Hemoglobin 11.1 gm/dL (12.5-16.0); Mean Corpuscular Hemoglobin 32.3 pg (27-31); Mean Corpuscular Hgb Conc 32.3 g/dl (32-36); Mean Platelet Volume 9.8 fl (8-12.5); Neutrophil # 8.2 K/mm3 (1.3-6.0); Neutrophil % 83.5 % (42-75.0); Platelet Count 153 K/mm3 (150-450); Red Blood Count 3.44 M/mm3 (4.2-5.4); Red Cell Distribution Width 14.2 % (11.5-14.0); White Blood Count 9.8 K/mm3 (4.0-10.5)
[2020-08-26 06:49] LABS: Albumin * 2.4 gm/dl (3.4-5.0); Anion Gap 10.1 mmol/L (6.8-13.8); BUN/Creatinine Ratio 5.2 (9.0-21.6); Bilirubin, Total 0.4 mg/dL (0.0-1.1); Carbon Dioxide 27.4 mmol/L (24-32.6); Potassium 3.5 mmol/L (3.4-4.6); Total Protein 5.2 gm/dL (6.2-8.2)
[2020-08-26] MEDS: metroNIDAZOLE/SODIUM CHLORIDE 500 MG/100 ML BAG IV SCH ×3 (09:02→23:51)
[2020-08-26] MEDS: NORMAL SALINE 1,000 ML IV PRN (09:03)
[2020-08-26] MEDS: LEVOTHYROXINE SODIUM 88 MCG TABLET PO SCH (09:03)
[2020-08-26] MEDS: GLYCERIN/PROPYLENE GLYCOL 150 DROP BTL OP SCH ×3 (09:03→17:11)
[2020-08-26] MEDS: POTASSIUM CHLORIDE 20 MEQ TABLET.SA PO SCH (09:14)
--- NOTE | 2020-08-26 10:39 | PN ---
Subjective - Date and Time Seen Date: 08/26/20 Time: 08:53 Subjective Narrative: She states her pain continues to be intermittent. Sometimes she rates it a 0 out of 10. Currently it is a 5-6 out of 10. She is tolerating ice chips and water but states she cannot have a lot because it irritates her stomach and causes pain. Objective - Review of Systems Generalized/Overall Review: Denies: Fever Respiratory: Denies: Shortness of Breath Cardiac: Denies: Chest Pain Abdominal: Denies: Abdominal Pain Misc: All systems neg except as marked - Vitals Vitals: Last Vital Signs Temp 36.7 C 08/26/20 08:40 Pulse 79 08/26/20 08:40 Resp 16 08/26/20 08:40 BP 95/40 08/26/20 08:40 Pulse Ox 95 08/26/20 08:40 - Abnormal Lab Findings Abnormal Lab Findings: Abnormal Lab Results 08/26/20 08/26/20 Range/Units 06:24 06:24 RBC 3.44 L (4.2-5.4) M/mm3 Hgb 11.1 L (12.5-16.0) gm/dL Hct 34.4 L (37.0-47.0) % MCH 32.3 H (27-31) pg RDW 14.2 H (11.5-14.0) % Immature Gran % (Auto) 0.50 H (0.001-0.429) % Immature Gran # (Auto) 0.05 H (0.000-0.0310) K/mm3 Neutrophils % 83.5 H (42-75.0) % Lymphocytes % 7.8 L (20-51) % Neutrophils # 8.2 H (1.3-6.0) K/mm3 Lymphocytes # 0.76 L (1.5-3.5) k/mm3 Chloride 108 H (97-106) mmol/L BUN/Creatinine Ratio 5.2 L (9.0-21.6) Calcium 7.0 L (7.9-10.9) mg/dL Calcium Adj for Albumin 8.0 L (8.4-10.2) mg/dL Total Protein 5.2 L (6.2-8.2) gm/dL Albumin 2.4 L (3.4-5.0) gm/dl - Exam Constitutional: Present: Alert, Cooperative, Well developed, Well nourished, No distress, Middle aged ENT Exam: Present: hearing grossly normal Neck: Present: supple. Absent: lymphadenopathy (R), lymphadenopathy (L) Respiratory: Present: lungs clear, no respiratory distress, no accessory muscle use, No wheezing. Absent: crackles, rhonchi Cardiovascular/Chest: Present: regular rate, rhythm, no edema, no murmur Abdomen: Present: Normal bowel sounds, soft, tender - Throughout entire abdomen Extremity: Present: no pedal edema Skin Exam: Present: normal color, warm/dry Neurologic: Present: alert, normal mood/affect Appearance: Present: appropriate appearance Eye contact: Present: cooperative Thoughts: Present: normal mood /affect Assessment/Plan Plan Narrative: 59-year-old female with a past medical history of chronic recurrent diarrhea with abdominal discomfort, asthma, ADHD, anxiety, bipolar affective disorder, borderline personality disorder, depression, hypothyroidism, seasonal affective disorder presents from home with complaints of abdominal pain for the past 2 days. Her symptoms are associated with diarrhea with bright red blood per rectum. She states she has had recurrent episodes of diarrhea and abdominal pain in the past with no blood in the stool. She presented to the ER and is found to have stable vitals, H&H is stable at 14.3/42.8, she has a mild leukocytosis of 12.2, potassium is 3.1. CT abdomen pelvis is positive for nonspecific colitis involving the left hemicolon, no acute intra-abdominal or pelvic pathology, benign appearing incidental hepatic, splenic and renal cyst, no follow-up is recommended. She is being admitted for observation for colitis. She will receive Cipro and Flagyl in the emergency room. Her potassium has normalized to 3.5. H&H are 11.1/34.4. WBCs have dropped to 9.8. Follow-up stool culture, C. difficile and fecal calprotectin. She continues to have intermittent episodes of abdominal pain. She is no longer having blood in her stool with colonoscopy was performed on August 25, [address] Zamora, biopsies were taken. There was no active bleed found. She is tolerating ice chips and small sips of water. I discussed her diet with Dr. Zamora and he recommends continuing her on a clear liquid diet until her abdominal pain resolves, at that point she can be transitioned to a soft diet. Plan #1 CBC and CMP in the morning #2 continue Cipro and Flagyl day 3 #3 replete potassium as needed #4 continue with ice chips and small sips of water. Can advance to clear liquids. I will hold solid food until her abdominal pain resolves. #5 follow-up stool studies #6 awaiting pathology report - Problems/Diagnosis (1) Colitis Problem: Acute (2) Lower gastrointestinal bleeding Problem: Acute (3) Hypokalemia due to excessive gastrointestinal loss of potassium Problem: Acute (4) Major depression Problem: Chronic Qualifiers: (5) Generalized anxiety disorder Problem: Chronic (6) Borderline personality disorder Problem: Chronic (7) Attention deficit disorder of adult with hyperactivity Problem: Chronic (8) Asthma Problem: Acute
[2020-08-26] MEDS: MONTELUKAST SODIUM 10 MG TABLET PO SCH (17:11)
[2020-08-26] MEDS: traZODone HCL 150 MG TABLET PO SCH (21:49)
[2020-08-26] MEDS: clonazePAM 1 MG TABLET PO PRN (21:50)
[2020-08-27] MEDS: CIPROFLOXACIN IN 5 % DEXTROSE 400 MG/200 ML BAG IV SCH ×2 (02:27→16:18)
[2020-08-27] MEDS: LEVOTHYROXINE SODIUM 88 MCG TABLET PO SCH (06:37)
[2020-08-27] MEDS: metroNIDAZOLE/SODIUM CHLORIDE 500 MG/100 ML BAG IV SCH ×3 (06:38→22:37)
[2020-08-27 06:50] LABS: Hematocrit 36.8 % (37.0-47.0); Hemoglobin 11.8 gm/dL (12.5-16.0); Mean Cell Volume 100.8 fl (78-100); Mean Corpuscular Hemoglobin 32.3 pg (27-31); Mean Corpuscular Hgb Conc 32.1 g/dl (32-36); Neutrophil # 7.1 K/mm3 (1.3-6.0); Neutrophil % 82.1 % (42-75.0); Platelet Count 198 K/mm3 (150-450); Red Blood Count 3.65 M/mm3 (4.2-5.4); Red Cell Distribution Width 13.8 % (11.5-14.0); White Blood Count 8.6 K/mm3 (4.0-10.5)
[2020-08-27 07:06] LABS: Albumin * 2.7 gm/dl (3.4-5.0); Anion Gap 9.7 mmol/L (6.8-13.8); BUN/Creatinine Ratio 5.6 (9.0-21.6); Bilirubin, Total 0.3 mg/dL (0.0-1.1); Calcium * 7.3 mg/dL (7.9-10.9); Carbon Dioxide 28.6 mmol/L (24-32.6); Potassium 3.3 mmol/L (3.4-4.6); Total Protein 5.9 gm/dL (6.2-8.2)
[2020-08-27] MEDS: NORMAL SALINE 1,000 ML IV PRN (09:11)
[2020-08-27] MEDS ORDERED: POTASSIUM CHLORIDE 20 MEQ TABLET.SA PO ONE (09:27)
[2020-08-27] MEDS: GLYCERIN/PROPYLENE GLYCOL 150 DROP BTL OP SCH ×3 (09:37→17:54)
--- NOTE | 2020-08-27 09:41 | PN ---
Subjective - Date and Time Seen Date: 08/27/20 Time: 09:35 Subjective Narrative: I still have abdominal pain but no bloody stools Objective Objective Narrative: 59-year-old female admitted for acute inflammatory colitis, posthemorrhagic anemia, and rectal bleeding was evaluated at bedside this morning was found to be afebrile and in no acute distress. However the patient continues to report abdominal pain and is significantly tender diffusely in the abdominal area. She denies any recurrence of rectal bleeding however she continues to report feeling ill. The patient's hemoglobins have remained stable in fact it has slightly improved from yesterday's reading. Potassium only shows slight improvement as well, so we will administer an additional tablet of potassium chloride. The patient underwent colonoscopy 2 days ago which revealed significant colitis with multiple areas of marked inflammation, biopsy results are pending. She was evaluated by the surgeon this morning at bedside and he recommended keeping her on clear liquids for now and continuing bowel rest. Patient is in agreement with this so we will keep her diet as is and reevaluate in the morning. - Review of Systems Generalized/Overall Review: Reports: No Symptoms Reported EENTM: Reports: No Symptoms Reported Respiratory: Reports: No Symptoms Reported Cardiac: Reports: No Symptoms Reported Abdominal: Reports: Abdominal Pain Genitourinary Symptoms: Reports: No Symptoms Reported Musculoskeletal Complaints: Reports: No Symptoms Reported Neurological: Reports: No Symptoms Reported Skin: Reports: No Symptoms Reported Endocrine: Reports: No Symptoms Reported - Vitals Vitals: Last Vital Signs Temp 38.0 C 08/27/20 06:32 Pulse 91 08/27/20 06:32 Resp 16 08/27/20 06:32 BP 115/47 08/27/20 06:32 Pulse Ox 94 08/27/20 06:32 - Abnormal Lab Findings Abnormal Lab Findings: Abnormal Lab Results 08/27/20 08/27/20 Range/Units 06:45 06:45 RBC 3.65 L (4.2-5.4) M/mm3 Hgb 11.8 L (12.5-16.0) gm/dL Hct 36.8 L (37.0-47.0) % MCV 100.8 H (78-100) fl MCH 32.3 H (27-31) pg Neutrophils % 82.1 H (42-75.0) % Lymphocytes % 9.2 L (20-51) % Neutrophils # 7.1 H (1.3-6.0) K/mm3 Lymphocytes # 0.79 L (1.5-3.5) k/mm3 Potassium 3.3 L (3.4-4.6) mmol/L BUN/Creatinine Ratio 5.6 L (9.0-21.6) Calcium 7.3 L (7.9-10.9) mg/dL Calcium Adj for Albumin 8.0 L (8.4-10.2) mg/dL Total Protein 5.9 L (6.2-8.2) gm/dL Albumin 2.7 L (3.4-5.0) gm/dl - Exam Constitutional: Present: Alert, Oriented x3, Cooperative, Well developed, Well nourished, No distress ENT Exam: Present: normal ENT inspection, hearing grossly normal Neck: Present: non-tender, full range of motion, supple, normal inspection, trachea midline Breasts: Present: Exam deferred, Nontender Respiratory: Present: chest non-tender, lungs clear, normal breath sounds, no respiratory distress, no accessory muscle use Cardiovascular/Chest: Present: normal peripheral pulses, regular rate, rhythm, no chest tenderness, no edema, no gallop, no JVD, no murmur, no rub Abdomen: Present: tender, rebound tenderness /Rectal: Present: Exam deferred Extremity: Present: normal range of motion, non-tender, normal inspection, no pedal edema, no calf tenderness, normal capillary refill, pelvis stable Skin Exam: Present: normal color, warm/dry, no cyanosis Lymphatic: Present: no adenopathy Neurologic: Present: 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 Patient will be kept on clear liquids and will reevaluate in morning. - Problems/Diagnosis (1) Colitis Problem: Acute (2) Lower gastrointestinal bleeding Problem: Acute (3) Hypokalemia due to excessive gastrointestinal loss of potassium Problem: Acute (4) Major depression Problem: Chronic Qualifiers: (5) Generalized anxiety disorder Problem: Chronic (6) Borderline personality disorder Problem: Chronic (7) Anemia Problem: Acute Qualifiers: Other causes of anemia: acute posthemorrhagic
[2020-08-27] MEDS: MONTELUKAST SODIUM 10 MG TABLET PO SCH (17:53)
[2020-08-27] MEDS: traZODone HCL 150 MG TABLET PO SCH (20:45)
[2020-08-27] MEDS: clonazePAM 1 MG TABLET PO PRN (20:48)
[2020-08-28] MEDS: CIPROFLOXACIN IN 5 % DEXTROSE 400 MG/200 ML BAG IV SCH ×2 (02:53→15:04)
[2020-08-28 06:45] LABS: Albumin * 2.4 gm/dl (3.4-5.0); Anion Gap 8.4 mmol/L (6.8-13.8); BUN/Creatinine Ratio 3.9 (9.0-21.6); Bilirubin, Total 0.2 mg/dL (0.0-1.1); Ca. Corrected For Albumin 7.9 mg/dL (8.4-10.2); Calcium * 6.9 mg/dL (7.9-10.9); Carbon Dioxide 30.6 mmol/L (24-32.6); Total Protein 5.5 gm/dL (6.2-8.2)
[2020-08-28] MEDS: LEVOTHYROXINE SODIUM 88 MCG TABLET PO SCH (07:22)
[2020-08-28] MEDS: metroNIDAZOLE/SODIUM CHLORIDE 500 MG/100 ML BAG IV SCH ×3 (07:24→23:11)
[2020-08-28] MEDS: GLYCERIN/PROPYLENE GLYCOL 150 DROP BTL OP SCH ×3 (10:02→17:30)
[2020-08-28] MEDS ORDERED: POTASSIUM CHLORIDE 20 MEQ TABLET.SA PO ONE (10:31)
--- NOTE | 2020-08-28 10:42 | PN ---
Subjective - Date and Time Seen Date: 08/28/20 Time: 10:36 Subjective Narrative: My belly feels better only slightly tender Objective Objective Narrative: 59-year-old female admitted for acute inflammatory colitis, post hemorrhagic anemia, and rectal bleeding was evaluated at bedside this morning was found to be afebrile and in no acute distress. Patient continues to show progress, this morning she reports less abdominal pain and nonbloody bowel movements. Her only complaint this morning is mild tenderness in her lower abdomen. Physical exam was nonremarkable and she was only noted to have only mild tenderness on deep palpation. The patient denies nausea she has not vomited and is tolerating clear liquids without any issues. Given these improvements will progress her diet to full liquids to see how she tolerates. In the meantime we will replace potassium since she was found to have hypokalemia on labs this morning. - Review of Systems Generalized/Overall Review: Reports: No Symptoms Reported EENTM: Reports: No Symptoms Reported Respiratory: Reports: No Symptoms Reported Cardiac: Reports: No Symptoms Reported Abdominal: Reports: Other Genitourinary Symptoms: Reports: No Symptoms Reported Musculoskeletal Complaints: Reports: No Symptoms Reported Neurological: Reports: No Symptoms Reported Skin: Reports: No Symptoms Reported Endocrine: Reports: No Symptoms Reported - Vitals Vitals: Last Vital Signs Temp 36.7 C 08/28/20 07:21 Pulse 76 08/28/20 07:21 Resp 16 08/28/20 07:21 BP 122/62 08/28/20 07:21 Pulse Ox 97 08/28/20 07:21 - Abnormal Lab Findings Abnormal Lab Findings: Abnormal Lab Results 08/28/20 Range/Units 06:20 Sodium 143 H (132-142) mmol/L Plasma Sodium 143 H (130-142) mmol/L Potassium 3.0 L (3.4-4.6) mmol/L Chloride 107 H (97-106) mmol/L BUN/Creatinine Ratio 3.9 L (9.0-21.6) Calcium 6.9 L (7.9-10.9) mg/dL Calcium Adj for Albumin 7.9 L (8.4-10.2) mg/dL ALT 17 L (19-67) U/L Total Protein 5.5 L (6.2-8.2) gm/dL Albumin 2.4 L (3.4-5.0) gm/dl - Exam Constitutional: Present: Alert, Oriented x3, Cooperative, Well developed, Well nourished, No distress ENT Exam: Present: normal ENT inspection, hearing grossly normal Neck: Present: non-tender, full range of motion, supple, normal inspection, trachea midline Breasts: Present: Exam deferred, Nontender Respiratory: Present: chest non-tender, lungs clear, normal breath sounds, no respiratory distress, no accessory muscle use Cardiovascular/Chest: Present: normal peripheral pulses, regular rate, rhythm, no chest tenderness, no edema, no gallop, no JVD, no murmur, no rub Abdomen: Present: Normal bowel sounds, soft, nondistended, no rebound tenderness, no hepatospenomegaly, no masses /Rectal: Present: Exam deferred Extremity: Present: normal range of motion, non-tender, normal inspection, no pedal edema, no calf tenderness, normal capillary refill, pelvis stable Skin Exam: Present: normal color, warm/dry, no cyanosis Lymphatic: Present: no adenopathy Neurologic: Present: 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 We will repeat a CMP in the morning to reevaluate electrolytes and continue to progress the diet as patient tolerates. - Problems/Diagnosis (1) Colitis Problem: Acute (2) Lower gastrointestinal bleeding Problem: Acute (3) Hypokalemia due to excessive gastrointestinal loss of potassium Problem: Acute (4) Major depression Problem: Chronic Qualifiers: (5) Generalized anxiety disorder Problem: Chronic (6) Borderline personality disorder Problem: Chronic (7) Anemia Problem: Acute Qualifiers: Other causes of anemia: acute posthemorrhagic
[2020-08-28 16:56] LABS: P-ANCA Titer DNR titer (<1:20)
[2020-08-28] MEDS: MONTELUKAST SODIUM 10 MG TABLET PO SCH (17:29)
[2020-08-28] MEDS: traZODone HCL 150 MG TABLET PO SCH (20:59)
[2020-08-28] MEDS: clonazePAM 1 MG TABLET PO PRN (21:00)
[2020-08-29] MEDS: CIPROFLOXACIN IN 5 % DEXTROSE 400 MG/200 ML BAG IV SCH (03:55)
[2020-08-29] MEDS: LEVOTHYROXINE SODIUM 88 MCG TABLET PO SCH (06:18)
[2020-08-29] MEDS: metroNIDAZOLE/SODIUM CHLORIDE 500 MG/100 ML BAG IV SCH (06:18)
[2020-08-29 06:40] LABS: Albumin * 2.7 gm/dl (3.4-5.0); Anion Gap 10.1 mmol/L (6.8-13.8); BUN/Creatinine Ratio 5.1 (9.0-21.6); Bilirubin, Total 0.2 mg/dL (0.0-1.1); Ca. Corrected For Albumin 8.5 mg/dL (8.4-10.2); Calcium * 7.8 mg/dL (7.9-10.9); Carbon Dioxide 30.2 mmol/L (24-32.6); Potassium 3.3 mmol/L (3.4-4.6); Total Protein 5.8 gm/dL (6.2-8.2)
[2020-08-29] MEDS: GLYCERIN/PROPYLENE GLYCOL 150 DROP BTL OP SCH (08:24)
--- NOTE | 2020-08-29 10:20 | DS ---
(1) Colitis Problem: Acute (2) Lower gastrointestinal bleeding Problem: Resolved (3) Hypokalemia due to excessive gastrointestinal loss of potassium Problem: Acute (4) Major depression Problem: Chronic Qualifiers: (5) Generalized anxiety disorder Problem: Chronic (6) Borderline personality disorder Problem: Chronic (7) Anemia Problem: Acute Qualifiers: Other causes of anemia: acute posthemorrhagic Date of Discharge:: 08/29/20 Hospital Course: 59-year-old female admitted for acute colitis and lower GI bleed was evaluated at bedside this morning and found to be afebrile and in no acute distress. We continue to progress the patient's diet and she has tolerated oral intake without any issues. She denies any abdominal pain or any distention and was nontender on exam this morning. The patient also denies any rectal bleeding and her hemoglobin has remained stable. Biopsy results taken during colonoscopy are still pending so she was instructed to follow-up with results in outpatient basis. She was also instructed to follow-up with her primary care doctor in 1 week for follow-up. We will discharge patient with additional days of p.o. antibiotics to continue treating her colitis. Procedures Performed: see notes below List Procedures: Colonoscopy Results and Findings: Lab Pending Results 08/24/20 11:25: WBC 12.2 H, RBC 4.45, Hgb 14.3, Hct 42.8, MCV 96.2, MCH 32.1 H, MCHC 33.4, RDW 13.6, Plt Count 244, MPV 10.0, Immature Gran % (Auto) 0.30, Immature Gran # (Auto) 0.04 H, Neutrophils % 88.1 H, Lymphocytes % 4.9 L, Monocytes % 6.2, Eosinophils % 0.2, Basophils % 0.3, Nucleated RBC % 0.0, Neutrophils # 10.7 H, Lymphocytes # 0.60 L, Monocytes # 0.8, Eosinophils # 0.0, Absolute Basophils 0.0 08/24/20 11:25: PT 11.1 H, INR (Anticoag Therapy) 1.07, PTT (Bernardo) 25.0 08/24/20 11:25: Sodium 141, Plasma Sodium 141, Potassium 3.1 L, Chloride 103, Carbon Dioxide 28.4, Anion Gap 12.7, BUN 18, Creatinine 0.75, Est GFR (Non-Af Amer) 84, BUN/Creatinine Ratio 24.0 H, Random Glucose 120 H, Calcium 8.1, Calcium Adj for Albumin 7.9 L, Total Bilirubin 0.6, AST 20, ALT 48, Alkaline Phosphatase 87, C-Reactive Prot, Quant 1.4 H, Total Protein 7.4, Albumin 3.9, Lipase 31 L 08/24/20 11:25: Blood Type A Positive, Antibody Screen Negative 08/24/20 11:40: Urine Color Yellow, Urine Appearance Clear, Urine pH 6.0, Ur Specific [place] 1.025, Urine Protein Negative, Urine Glucose (UA) Negative, Urine Ketones Negative, Urine Blood Negative, Urine Nitrate Negative, Urine Bilirubin Negative, Urine Urobilinogen Normal, Ur Leukocyte Esterase Negative, Urine RBC Trace, Urine WBC 0-5, Ur Epithelial Cells 0-5, Urine Bacteria Trace, Urine Mucus Trace, Urine Culture Comments No culture indicated 08/24/20 15:05: SARS-CoV-2 (PCR) Not detected 08/25/20 06:00: ANCA Screen Negative, c-ANCA Titer Dnr, p-ANCA Titer Dnr, Atypical p-ANCA Titer Dnr 08/25/20 06:29: WBC 11.5 H, RBC 3.91 L, Hgb 12.4 L, Hct 38.5, MCV 98.5, MCH 31.7 H, MCHC 32.2, RDW 13.9, Plt Count 181, MPV 10.4, Immature Gran % (Auto) 0.30, Immature Gran # (Auto) 0.04 H, Neutrophils % 83.8 H, Lymphocytes % 8.7 L, Monocytes % 6.4, Eosinophils % 0.5, Basophils % 0.3, Nucleated RBC % 0.0, Neutrophils # 9.6 H, Lymphocytes # 1.00 L, Monocytes # 0.7, Eosinophils # 0.1, Absolute Basophils 0.0 08/25/20 06:29: Sodium 142, Plasma Sodium 142, Potassium 2.9 L, Chloride 105, Carbon Dioxide 30.7, Anion Gap 9.2, BUN 8 D, Creatinine 0.87, Est GFR (Non-Af Amer) 71, BUN/Creatinine Ratio 9.2, Random Glucose 103, Calcium 7.1 L, Calcium Adj for Albumin 7.7 L, Total Bilirubin 0.6, AST 14, ALT 32, Alkaline Phosphatase 73, Total Protein 5.9 L, Albumin 2.9 L 08/25/20 16:00: Pathology Specimen Sent to path 08/25/20 17:00: Stl C.difficile Tox A&B Negative 08/26/20 06:24: WBC 9.8, RBC 3.44 L, Hgb 11.1 L, Hct 34.4 L, MCV 100.0, MCH 32.3 H, MCHC 32.3, RDW 14.2 H, Plt Count 153, MPV 9.8, Immature Gran % (Auto) 0.50 H, Immature Gran # (Auto) 0.05 H, Neutrophils % 83.5 H, Lymphocytes % 7.8 L, Monocytes % 6.5, Eosinophils % 1.3, Basophils % 0.4, Nucleated RBC % 0.0, Neutrophils # 8.2 H, Lymphocytes # 0.76 L, Monocytes # 0.6, Eosinophils # 0.1, Absolute Basophils 0.0 08/26/20 06:24: Sodium 142, Plasma Sodium 142, Potassium 3.5 D, Chloride 108 H, Carbon Dioxide 27.4, Anion Gap 10.1, BUN 4, Creatinine 0.77, Est GFR (Non-Af Amer) 82, BUN/Creatinine Ratio 5.2 L, Random Glucose 86, Calcium 7.0 L, Calcium Adj for Albumin 8.0 L, Total Bilirubin 0.4, AST 11, ALT 23, Alkaline Phosphatase 70, Total Protein 5.2 L, Albumin 2.4 L 08/27/20 06:45: WBC 8.6, RBC 3.65 L, Hgb 11.8 L, Hct 36.8 L, MCV 100.8 H, MCH 32.3 H, MCHC 32.1, RDW 13.8, Plt Count 198, MPV 10.0, Immature Gran % (Auto) 0.20, Immature Gran # (Auto) 0.02, Neutrophils % 82.1 H, Lymphocytes % 9.2 L, Monocytes % 5.9, Eosinophils % 2.3, Basophils % 0.3, Nucleated RBC % 0.0, Neutrophils # 7.1 H, Lymphocytes # 0.79 L, Monocytes # 0.5, Eosinophils # 0.2, Absolute Basophils 0.0 08/27/20 06:45: Sodium 141, Plasma Sodium 141, Potassium 3.3 L, Chloride 106, Carbon Dioxide 28.6, Anion Gap 9.7, BUN 4, Creatinine 0.71, Est GFR (Non-Af Amer) 90, BUN/Creatinine Ratio 5.6 L, Random Glucose 90, Calcium 7.3 L, Calcium Adj for Albumin 8.0 L, Total Bilirubin 0.3, AST 10, ALT 21, Alkaline Phosphatase 71, Total Protein 5.9 L, Albumin 2.7 L 08/28/20 06:20: Sodium 143 H, Plasma Sodium 143 H, Potassium 3.0 L, Chloride 107 H, Carbon Dioxide 30.6, Anion Gap 8.4, BUN 3, Creatinine 0.76, Est GFR (Non-Af Amer) 83, BUN/Creatinine Ratio 3.9 L, Random Glucose 91, Calcium 6.9 L, Calcium Adj for Albumin 7.9 L, Total Bilirubin 0.2, AST 11, ALT 17 L, Alkaline Phosphatase 67, Total Protein 5.5 L, Albumin 2.4 L 08/29/20 06:07: Sodium 143 H, Plasma Sodium 143 H, Potassium 3.3 L, Chloride 106, Carbon Dioxide 30.2, Anion Gap 10.1, BUN 4, Creatinine 0.78, Est GFR (Non- Af Amer) 80, BUN/Creatinine Ratio 5.1 L, Random Glucose 94, Calcium 7.8 L, Calcium Adj for Albumin 8.5, Total Bilirubin 0.2, AST 17, ALT 19, Alkaline Phosphatase 71, Total Protein 5.8 L, Albumin 2.7 L Discharge Location: Home Disposition: Home self-care Condition: Stable Face to Face Encounter completed per [facility] Guidelines: No Discharge Activity: Activity as tolerated Discharge Diet: General/regular food Referrals: Ines Seth MD [Primary Care Provider] - Prescriptions (Any new or edited meds): Ciprofloxacin HCl [Cipro] 500 mg PO BID 10 Days #20 tab Transmission Status: Pending to [facility] Lactobacillus Rhamnosus GG [Culturelle] 1 ea PO BID #30 cap Transmission Status: Pending to [facility] metroNIDAZOLE [Flagyl] 500 mg PO Q8H 10 Days #30 tab Transmission Status: Pending to [facility] Complete Home Medications List: Complete Home Medication List: Ibuprofen [Motrin] 800 mg PO TID PRN 12/16/15 acetaminophen 500 mg tablet 1,000 mg PO Q6H PRN tab 09/03/18 propylene glycol 0.6 % eye drops 1 drp OP TID 10/23/19 montelukast 10 mg tablet 10 mg PO DAILY #30 tab 02/09/20 albuterol sulfate 90 mcg/actuation aerosol inhaler 2 inh IH Q4H PRN #8 g 02/10/20 albuterol sulfate 2.5 mg INHALATION QID PRN #75 ml 03/02/20 levothyroxine 88 mcg tablet 88 mcg PO DAILY #90 tab 03/15/20 clonazepam 2 mg tablet 2 mg PO TID PRN #270 tab 03/18/20 trazodone 150 mg tablet 150 mg PO HS #90 tab 04/09/20 desvenlafaxine succinate 100 mg tablet,extended release 24 hr 100 mg PO DAILY #90 tab 06/08/20 dextroamphetamine-amphetamine 30 mg tablet 30 mg PO DAILY #90 tab 06/08/20 Ciprofloxacin HCl [Cipro] 500 mg PO BID 10 Days #20 tab 08/29/20 Lactobacillus Rhamnosus GG [Culturelle] 1 ea PO BID #30 cap 08/29/20 metroNIDAZOLE [Flagyl] 500 mg PO Q8H 10 Days #30 tab 08/29/20 Forms: Patient Portal Registration
[2020-08-29 13:54] VITALS: BP 132/70
== END 2020-08-29 11:13 | disposition home or self-care (01) | DRG 392 ==
LOC: ER 11:03 → MS 11:03
PROVIDERS: ADMIT Internal Medicine; ATTEND Internal Medicine